=== PATIENT | male | born 1965 | race Caucasian/White ===

== ENCOUNTER 2024-04-22 00:34 | Emergency (ER) | payer OTHER, SELFPAY ==
[2024-04-22 00:42] VITALS: BP 159/87; PULSE 79; RESP 18; TEMP 36.6; O2SAT 99
[2024-04-22 01:06] VITALS: BP 163/97; PULSE 73; RESP 14; TEMP 36.8; O2SAT 98
[2024-04-22] MEDS: Fluorescein Sodium STRIP 1 STRIP EYE-RIGHT (04:05)
[2024-04-22] MEDS: Tetracaine HCl/PF 0.5% Oph Sol 4 ML DROPS 3 DROP EYE-RIGHT (04:05)
--- NOTE | 2024-04-22 04:16 | ED.EYEPROB ---
HPI - Eye Problem General Chief complaint: Eye Problems Stated complaint: Glaucoma surgery complications Time Seen by Provider: 04/22/24 01:35 History of Present Illness HPI Narrative: Patient is a 58-year-old male with a history of glaucoma. He lost vision out of his right eye for the last 3 months. Was seen on Sunday by a provider in [place] stated that the doctor give him an injection in his eye and began him on prednisolone eyedrops this has not helped him with the pain. He is also baseline on timolol eyedrops. He is having worsened pain today and that is why he came to the ED. patient denies any fever chills. Denies any chest pain shortness of breath. Denies any vomiting. The pain is the same that he has been experiencing for the last few months just not getting better. Related Data Allergies Allergy/AdvReac Type Severity Reaction Status Date / Time Penicillins Allergy Itching Verified 04/22/24 00:55 ibuprofen [From Motrin] AdvReac Gastrointestinal Verified 04/22/24 00:55 Upset Review of Systems Review of Systems: Positive eye pain on the right side. Baseline has no vision out of the right eye Yes all other systems are reviewed and are negative [facility] Past Medical History Attestation statement: The following information was validated with the patient. Social History Social History Advance Directives: No Advance Directives Information Provided: Yes Physical Exam Vital Signs: Vital Signs: Last Vital Signs Temp 98.2 F 04/22/24 01:06 Pulse 73 04/22/24 01:06 Resp 14 04/22/24 01:06 BP 163/97 H 04/22/24 01:06 Pulse Ox 98 04/22/24 01:06 O2 Del Method Room Air 04/22/24 01:06 BMI result Body Mass Index 30.0 Appearance: Alert. Oriented X3. No acute distress. Eyes: Examination of the right eye the anterior chamber looks cloudy. The eye was numbed using tetracaine. Subsequently stained with fluorescein. There is no uptake noted. The sclera was injected. The pupils are dilated has no reaction to light. 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 The left eye patient was able to finger count able to read letters without any difficulties. Pupils on the left eye was intact ENT: Pharynx normal. Neck: Normal inspection. Neck supple. No lymph nodes noted. No crepitus CVS: Normal heart rate and rhythm. Pulses normal. Normal S1 and S2 Respiratory: No respiratory distress. Breath sounds normal. No Wheezing. No rales Abdomen: Soft and nontender. No rigidity. No distention. good BS x4 Skin: Skin warm and dry. Normal skin color. Normal skin turgor. Extremities: No lower extremity edema. Neurovascular intact to all extremities. No Lacerations. No Rash Neuro: Oriented X 3. No motor deficit. No sensory deficit. Moving all extermities. No slurred speech Medications Administered Discontinued Medications Generic Name Dose Route Start Last Admin Trade Name Freq PRN Reason Stop Dose Admin Fluorescein Sodium 1 strip 04/22/24 02:22 04/22/24 04:05 Fluorescein Sodium Strip EYE-RIGHT 04/22/24 02:23 1 strip ONCE ONE Administration Tetracaine HCl 3 drop 04/22/24 02:23 04/22/24 04:05 Tetracaine Hcl/Pf 0.5% Oph Abigail 4 Ml Drops EYE-RIGHT 04/22/24 02:24 3 drop ONCE ONE Administration Medical Decision Making Medical Decision Making MDM Narrative: Patient has a history of loss in vision out of the right eye for the last 3 months. Currently is on prednisolone eyedrops 4 times a day. Along with timolol. Grossly has no vision out of the eye. No light proprioception. Pupils were dilated. Anterior chamber appeared cloudy. We were unable to find the tonometer tonight. Patient's case discussed with his regulatory process manager on-call Dr. Valdovinos. want patient to be started on atropine 1% twice a day. Patient was started on a medication in the emergency department. Wanted to increase the prednisolone eyedrops to every 2 hours. Patient can call the office in a.m. for an appointment tomorrow. Currently in stable condition. Likely have a vascular cause of glaucoma. Agreed no emergent intervention needed Differential Diagnosis Differential Diagnoses: The differential diagnosis associated with the presentation includes Glaucoma, eye trauma, Admission/Observation Consideration of admission/observation: Escalation of care including admission/observation considered Consult Healthcare Provider Management of the patient was discussed with: Field Contact Person (Ophthalmology dr valdovinos) Chronic Conditions Glaucoma Discharge Plan Discharge Clinical Impression: Glaucoma Patient Disposition: Home, Self-Care Instructions: Glaucoma (ED) Additional Instructions: Please use the atropine 1% eyedrops twice a day. Please use the prednisolone eye drops every 2 hours. Referrals: Henry Valdovinos MD [Physician] - 04/23/24 (Please call today for an appointment tomorrow) Print Language: Romansh
[2024-04-22 05:18] VITALS: BP 158/92; PULSE 78; RESP 16; TEMP 36.9; O2SAT 97
[2024-04-22 05:30] VITALS: BP 158/92; PULSE 78; RESP 16; TEMP 36.9; O2SAT 97
[2024-04-22] MEDS: Atropine Sulfate 1 % Ophth Sol 2 ML BOTTLE 1 DROP EYE-RIGHT (05:30)
== END 2024-04-22 05:31 | disposition home or self-care (01) ==
PROVIDERS: Emergency Provider Emergency Medicine Emergency Medical Services
DX: H40.89 Other specified glaucoma (principal); H54.61 Unqualified visual loss, right eye, normal vision left eye
CPT/HCPCS: 99283